=== PATIENT | female | born 1955 | race Caucasian/White ===

== ENCOUNTER → 2016-03-01 | Outpatient (CLI) | payer OTHER ==
--- NOTE | 2016-03-01 16:11 | REPMRS ---
Patient History The patient states she had a clinical breast exam in 02/2016. Patient is postmenopausal. Family history of prostate cancer in paternal grandfather at age 50 or over, breast cancer in paternal aunt at age 50 or over, and colorectal cancer in paternal grandmother at age 50 or over. Digital Woman Screen Mammo: March 01, 2016 - Exam #: [id number] Bilateral CC and MLO view(s) were taken. Technologist: Cindy Khan, Technologist Prior study comparison: December 18, 2014, digital woman screen mammo performed at [facility]. July 05, 2012, digital woman screen mammo performed at [facility]. December 30, 2010, bilateral bilat screen digital mammo performed at [facility]. FINDINGS: The breast tissue is almost entirely fat. There has been no change in the appearance of the mammogram from the prior studies. There is no interval development of dominant mass, architectural distortion, or clustered microcalcification typical of malignancy. ASSESSMENT: BI-RADS/ACR category 1 mammogram. Negative. Recommendation Routine screening mammogram of both breasts in 1 year (for women over age 40). This mammogram was interpreted with the aid of an FDA-approved computer-aided dectection system. Electronically Signed By: Patel Mack MD 03/01/16 [id number]
== END ==
LOC: M WHC 14:59
PROVIDERS: ATTEND Nurse Practitioner Family
DX: Z12.31 Encounter for screening mammogram for malignant neoplasm of breast (principal); Z78.0 Asymptomatic menopausal state

== ENCOUNTER → 2016-03-01 | Outpatient (REF) | payer OTHER | LOC: M SFHCWAGY 15:39 | PROVIDERS: ATTEND Nurse Practitioner Family | DX: Z12.4 Encounter for screening for malignant neoplasm of cervix (principal); N88.8 Other specified noninflammatory disorders of cervix uteri ==

== ENCOUNTER → 2016-12-06 | Outpatient (CLI) | payer OTHER ==
[2016-12-06 14:18] LABS: INR 0.93
== END ==
LOC: M LAB 13:34
PROVIDERS: ATTEND General Practice
DX: K74.3 Primary biliary cirrhosis (principal)

== ENCOUNTER → 2017-04-06 | Outpatient (CLI) | payer OTHER | LOC: M WHC 14:33 | DX: Z12.31 Encounter for screening mammogram for malignant neoplasm of breast (principal); Z80.3 Family history of malignant neoplasm of breast; Z78.0 Asymptomatic menopausal state; Z80.42 Family history of malignant neoplasm of prostate | CPT/HCPCS: 77067 ==

== ENCOUNTER → 2017-05-16 | Outpatient (CLI) | payer OTHER | LOC: M RAD 08:14 | DX: M51.26 Other intervertebral disc displacement, lumbar region (principal); M51.27 Other intervertebral disc displacement, lumbosacral region; M43.17 Spondylolisthesis, lumbosacral region | CPT/HCPCS: 72148 ==

== ENCOUNTER → 2018-08-01 | Outpatient (REF) | payer OTHER ==
[2018-08-04 14:55] LABS: HPV HYBRID CAPTURE II Negative (Negative)
== END ==
LOC: M SFHCWAGY 09:16
PROVIDERS: ATTEND Nurse Practitioner Family
DX: Z12.4 Encounter for screening for malignant neoplasm of cervix (principal); N88.8 Other specified noninflammatory disorders of cervix uteri
CPT/HCPCS: 87624; G0123

== ENCOUNTER → 2019-02-16 | Outpatient (REF) | payer OTHER | LOC: M LAB LCGH 17:48 | PROVIDERS: ATTEND Physician Assistant | DX: L98.9 Disorder of the skin and subcutaneous tissue, unspecified (principal) ==

== ENCOUNTER → 2019-08-03 | Outpatient (CLI) | payer BC | LOC: M PLALAB 14:22 | PROVIDERS: ATTEND Nurse Practitioner Family | DX: Z13.79 Encounter for other screening for genetic and chromosomal anomalies (principal) ==

== ENCOUNTER → 2019-08-03 | Outpatient (CLI) | payer BC ==
--- NOTE | 2019-08-03 16:32 | REPMRS ---
Patient History The patient states she had a clinical breast exam in July 2019.Family history of colorectal cancer at age 50 or over in paternal grandmother, prostate cancer at age 50 or over in paternal grandfather, breast cancer at age 50 or over in paternal aunt. No Hormone Replacement Therapy 3D TOMOSYNTHESIS WAS PERFORMED. [facility] lifetime risk for breast cancer is 12.1%. VOLPARA DENSITY A. Digital Woman Screen Mammo: August 03, 2019 - Exam #: [id number] Bilateral CC and MLO view(s) were taken. Technologist: Jasmin Ann, Technologist Prior study comparison: August 01, 2018, bilateral digital woman screen mammo performed at [facility]. April 06, 2017, digital woman screen mammo performed at [facility]. FINDINGS: There are scattered fibroglandular densities. There has been no change in the appearance of the mammogram from the prior studies. There is a mild amount of residual fibroglandular tissue which is fairly symmetric. There is no interval development of dominant mass, architectural distortion, or clustered microcalcification suggestive of malignancy. Assessment: BI-RADS/ACR category 1 mammogram. Negative Mammogram. Recommendation Routine screening mammogram in 1 year (for women over age 40). This mammogram was interpreted with the aid of an FDA-approved computer-aided dectection system. Electronically Signed By: Suleiman Salcdio MD 08/03/19 [id number]
== END ==
LOC: M WHC 13:11
PROVIDERS: ATTEND Nurse Practitioner Family
DX: Z12.31 Encounter for screening mammogram for malignant neoplasm of breast (principal)

== ENCOUNTER → 2020-08-13 | Outpatient (CLI) | payer MEDICARE, OTHER ==
--- NOTE | 2020-08-13 14:56 | REPMRS ---
Patient History The patient states she had a clinical breast exam in July 2020. Family history of colorectal cancer at age 50 or over in paternal grandmother, prostate cancer at age 50 or over in paternal grandfather, breast cancer at age 50 or over in paternal aunt. No Hormone Replacement Therapy No breast complaints today Patient signed the MRS sheet Patient has had both Mederna vaccines in the left arm but couldn't remember when Priors on PACS Patient Identification Verified Digital Woman Screen Mammo: August 13, 2020 - Exam #: [id number] Bilateral CC and MLO view(s) were taken. Technologist: Babs Velarde, Technologist Prior study comparison: August 03, 2019, bilateral digital woman screen mammo performed at [facility]. August 01, 2018, bilateral digital woman screen mammo performed at [facility]. April 06, 2017, digital woman screen mammo performed at [facility]. FINDINGS: The breast tissue is almost entirely fat. The Volpara volumetric breast density category is: A. There has been no change in the appearance of the mammogram from the prior studies. There is no interval development of dominant mass, architectural distortion, or grouped microcalcification typical of malignancy. 3-D tomosynthesis shows no additional findings. Assessment: BI-RADS/ACR category 1 mammogram. Negative Mammogram. Recommendation Routine screening mammogram of both breasts in 1 year (for women over age 40). This patient's [facility] Lifetime Breast Cancer RIsk is estimated at 11.5 %. This mammogram was interpreted with the aid of an FDA-approved computer-aided dectection system. Electronically Signed By: Patel Mack MD 08/13/20 [id number]
== END ==
LOC: M WHC 13:32
PROVIDERS: ATTEND Nurse Practitioner Women's Health
DX: Z12.31 Encounter for screening mammogram for malignant neoplasm of breast (principal)
CPT/HCPCS: 77063; 77067; G0101

== ENCOUNTER → 2021-12-17 | Outpatient (CLI) | payer MEDICARE | LOC: M WHC 14:36 | PROVIDERS: ATTEND Advanced Practice Midwife | DX: Z12.31 Encounter for screening mammogram for malignant neoplasm of breast (principal) ==

== ENCOUNTER → 2023-05-13 | Outpatient (CLI) | payer MEDICARE, BC | LOC: M WHC 15:13 | PROVIDERS: ATTEND Advanced Practice Midwife | DX: Z12.31 Encounter for screening mammogram for malignant neoplasm of breast (principal) ==

== ENCOUNTER → 2024-06-06 | Outpatient (CLI) | payer MEDICARE, BC | LOC: M WHC 14:21 | PROVIDERS: ATTEND Advanced Practice Midwife | DX: Z12.31 Encounter for screening mammogram for malignant neoplasm of breast (principal); R92.313 Mammographic fatty tissue density, bilateral breasts ==